=== PATIENT | female | born 1975 | race Two or more races ===

== ENCOUNTER 2019-12-25 05:10 | Day surgery (SDC) | payer OTHER ==
[2019-12-24 13:20] VITALS: BMI 23.2
[2019-12-25] MEDS ORDERED: PROPOFOL 20 ML ONE ×3 (07:29→08:21)
[2019-12-25] MEDS ORDERED: ROCURONIUM BROMIDE 100 MG/10 ML VIAL ONE (07:29)
[2019-12-25] MEDS ORDERED: EPHEDRINE SULFATE/0.9% NACL/PF 50 MG/10 ML SYRINGE NR ONE (07:29)
--- NOTE | 2019-12-25 07:32 | HP ---
History & Physical Update - History History: No Change - Physical Physical: No Change - Assessment Assessment: No Change - Plan Plan: No Change (Consent signed and witnessed All questions answered)
[2019-12-25] MEDS ORDERED: ONDANSETRON 4 MG/2 ML VIAL IVPUSH PRN (07:33)
[2019-12-25] MEDS ORDERED: IBUPROFEN 800 MG/8 ML IJ IVPB PRN (07:33)
[2019-12-25] MEDS ORDERED: oxyCODONE HCL 5 MG TABLET PO PRN (07:33)
[2019-12-25] MEDS ORDERED: MIDAZOLAM HCL 2 MG/2 ML SINGLE DOSE VIAL ONE (07:33)
[2019-12-25] MEDS ORDERED: IBUPROFEN 600 MG TABLET (FP) PO PRN (07:33)
--- NOTE | 2019-12-25 07:33 | OP ---
Operative Note - Note: Operative Date: 12/25/19 Pre-Operative Diagnosis: 44yo P2 with submucosal fibroid, menorrhagia, anemia Operation: Hysteroscopy, Myomectomy, Polypectomy, D&C Findings: Polyps x 2 Fibroid 3cm Uterus 10wk, irregular with fibroids Post-Operative Diagnosis: Same as Pre-op Surgeon: Maryam Ward Anesthesiologist/LABOR [employer]OMICS TEACHER: Jennifer Martinez Anesthesia: MAC Specimens Removed: Fibroid, polyp shavings, Endometrial curettings Estimated Blood Loss (mls): 5 Instrument used (Debridements only): Symphion Hysteroscope Drains & Tubes with Location: FD 50cc Drains, Volume Out (mls): 50 Fluid Volume Replaced (mls): 700 Operative Report Dictated: Yes
[2019-12-25] MEDS ORDERED: ELECTROLYTE-148 SOLN 1,000 ML IV SCH (07:45)
[2019-12-25] MEDS ORDERED: SUCCINYLCHOLINE CHLORIDE 200 MG/10 ML SYRINGE ONE (08:21)
[2019-12-25] MEDS ORDERED: LIDOCAINE HCL 2% JELLY (5 ML/TUBE) ONE (08:23)
[2019-12-25] MEDS ORDERED: DEXAMETHASONE SOD PHOSPHATE 4 MG/1 ML VIAL ONE (08:23)
[2019-12-25] MEDS ORDERED: KETOROLAC TROMETHAMINE 30 MG/1 ML VIAL ONE (08:23)
[2019-12-25] MEDS ORDERED: LIDOCAINE HCL/PF 2% SDV 5ML VIAL ONE ×2 (08:23)
--- NOTE | 2019-12-25 08:56 | OP ---
DATE OF OPERATION: 12/25/2019 PREOPERATIVE DIAGNOSIS: A 44-year-old para 2 with submucosal fibroids, menorrhagia, anemia. OPERATION: Hysteroscopy, myomectomy, polypectomy, dilation and curettage. FINDINGS: Two polyps; one approximately 3 cm in size fibroid; a uterus 10-week in size irregular with fibroids. POSTOPERATIVE DIAGNOSIS: Two polyps; one approximately 3 cm in size fibroid; a uterus 10-week in size irregular with fibroids. SURGEON: Maryam Ward MD ANESTHESIOLOGIST: Jennifer Martinez MD ANESTHESIA: MAC. SPECIMENS REMOVED: Fibroid, polyp, shavings and endometrial curettings. DESCRIPTION OF OPERATIVE PROCEDURE: After assuring informed consent, patient was brought to the operating room where she was placed in dorsal lithotomy position. Perineum and vagina were prepped and draped in a sterile fashion. Cervix was articulated with a single-tooth tenaculum using Wynne retractors for visualization. The cervix was gradually dilated to accommodate 6.3-mm Symphion hysteroscope which was introduced into the uterus without any difficulty after it was assembled, primed and white balanced. The above findings were noted. The resectoscope device was introduced through the operative port and cavity was cleared of polyps and fibroids. Subsequently, all instruments were removed from the uterus. The sharp curette was used for sharp curettage to obtain endometrial curettings. Subsequently, all instruments were removed from cervix, vagina and uterus. Excellent hemostasis was noted. Estimated blood loss was 5 mL. Urine output was 50 mL. Patient received 700 mL of IV fluids. Fluid deficit was 50 mL. Patient tolerated the procedure well and was brought to the recovery room in stable condition extubated. All instrument and sponge count was correct x2. Yusra [id number]
[2019-12-25 09:37] VITALS: TEMP 97.3
[2019-12-25 10:56] VITALS: BP 125/70; PULSE 78
--- NOTE | 2019-12-27 10:07 | PATH ---
Surgical Pathology Report Patient Name: DEIDRA GRULLON Med. Rec. #: [id number] /Age/Gender: 1975 (Age: 44) / F Account: [id number] Location: [facility] SURGICAL Taken: 12/25/2019 Received: 12/25/2019 Reported: 12/27/2019 Physicians: Maryam Ward M.D. Specimen(s) Received A: ENDOMETRIAL CURETTINGS B: POLYPS/FIBROIDS Clinical History Leiomyoma of uterus Final Diagnosis A. ENDOMETRIAL CURETTINGS, DILATION AND CURETTAGE: FRAGMENTS OF SECRETORY ENDOMETRIUM, FIBROMUSCULAR TISSUE, AND SCANT BENIGN ENDOCERVICAL TISSUE. B. POLYPS/FIBROIDS, HYSTEROSCOPIC FIBROID RESECTION, SYMPHION: FRAGMENTS OF ENDOMETRIAL POLYP, SECRETORY ENDOMETRIUM, AND FIBROMUSCULAR TISSUE SUGGESTIVE OF SUBMUCOSAL LEIOMYOMA. Electronically Signed Flaquita Hernandez M.D. Gross Description A. Received in formalin labeled "endometrial curettings" are multiple irregular fragments of pink-gonzalez and hemorrhagic, mucoid soft tissue measuring 1.5 x 1 x 0.5 cm. Entire specimen is submitted in one cassette. B. Received in formalin labeled "polyps/fibroids" are multiple irregular fragments of pink-gonzalez rubbery soft tissue consistent with morcellated fibroids measuring 5 x 3 x 0.8 cm in aggregate. The entire specimen submitted in 3 cassettes. MLSZ/12/25/2019 sanml/12/25/2019
== END 2019-12-25 10:25 | disposition home or self-care (01) ==
LOC: JASU-SURG 05:10
PROVIDERS: ATTEND Obstetrics & Gynecology
PROC: 0UJD8ZZ Inspection of Uterus and Cervix, Via Natural or Artificial Opening Endoscopic (ICD-10-PCS; 2019-12-25)
PROC: 0UB98ZZ Excision of Uterus, Via Natural or Artificial Opening Endoscopic (ICD-10-PCS; principal; 2019-12-25 13:00)
PROC: 0UDB7ZX Extraction of Endometrium, Via Natural or Artificial Opening, Diagnostic (ICD-10-PCS; 2019-12-25 13:00)
DX: D25.0 Submucous leiomyoma of uterus (principal); N92.0 Excessive and frequent menstruation with regular cycle; D64.9 Anemia, unspecified
CPT/HCPCS: 71046-TC-FY; 84703; 88305-TC; 94760

== ENCOUNTER 2022-03-02 08:00 | Inpatient (IN) | payer OTHER ==
[2022-03-08 11:15] VITALS: BMI 21.9
[2022-03-09] MEDS ORDERED: FENTANYL CITRATE/PF 50 MCG/ML VIAL ONE ×4 (13:47→18:43)
[2022-03-09] MEDS ORDERED: MIDAZOLAM HCL 2 MG/2 ML SINGLE DOSE VIAL ONE (13:47)
[2022-03-09] MEDS ORDERED: PROPOFOL 20 ML ONE (13:48)
[2022-03-09] MEDS ORDERED: DEXAMETHASONE SOD PHOSPHATE 4 MG/1 ML VIAL ONE (13:48)
[2022-03-09] MEDS ORDERED: ONDANSETRON 4 MG/2 ML VIAL ONE (13:48)
[2022-03-09] MEDS ORDERED: LIDOCAINE HCL/PF 2% SDV 5ML VIAL ONE (13:48)
[2022-03-09] MEDS ORDERED: ROCURONIUM BROMIDE 50 MG/5 ML SYRINGE ONE (13:48)
[2022-03-09] MEDS ORDERED: NEOSTIGMINE METHYLSULFATE 0.5 MG/ML - 10 ML MDV ONE ×2 (14:39→18:13)
[2022-03-09] MEDS ORDERED: GLYCOPYRROLATE 0.2 MG/1 ML VIAL ONE (14:39)
[2022-03-09] MEDS ORDERED: KETOROLAC TROMETHAMINE 30 MG/1 ML VIAL ONE (14:40)
[2022-03-09] MEDS ORDERED: BUPIVACAINE LIPOSOME/PF (EXPAREL) 266 MG/20 ML VIAL ONE (14:44)
[2022-03-09] MEDS ORDERED: BUPIVACAINE HCL/PF 0.25% (2.5MG/ML) 10 ML VIAL ONE (14:44)
[2022-03-09] MEDS ORDERED: SCOPOLAMINE HYDROBROMIDE 1 PATCH PATCH.TD72 ONE (15:36)
[2022-03-09] MEDS ORDERED: ceFAZolin SODIUM 1 GM VIAL ONE (16:47)
[2022-03-09] MEDS ORDERED: ceFAZolin SODIUM 1 GM VIAL IVPB ONE (16:52)
[2022-03-09] MEDS ORDERED: ONDANSETRON 4 MG/2 ML VIAL IVPUSH PRN ×2 (17:03→18:50)
[2022-03-09] MEDS ORDERED: PROMETHAZINE HCL 25 MG/1 ML VIAL IVPUSH PRN (17:03)
[2022-03-09] MEDS ORDERED: LACTATED RINGERS SOLUTION 1,000 ML IV SCH (17:15)
[2022-03-09] MEDS ORDERED: HYDROmorphone *PCA* 10MG/50ML DISP.SYRIN PCA SCH (17:15)
[2022-03-09] MEDS: FENTANYL CITRATE/PF 50 MCG/ML VIAL IVPUSH PRN ×5 (18:38→18:55)
[2022-03-09] MEDS ORDERED: HYDROmorphone *PCA* 10MG/50ML DISP.SYRIN ONE (18:42)
[2022-03-09] MEDS ORDERED: oxyCODONE HCL 5 MG TABLET PO PRN (18:50)
[2022-03-09] MEDS ORDERED: IBUPROFEN 800 MG/8 ML IJ IVPB PRN (18:50)
[2022-03-09] MEDS ORDERED: IBUPROFEN 600 MG TABLET (FP) PO PRN (18:50)
[2022-03-09] MEDS ORDERED: ACETAMINOPHEN INJECTION 100 ML IVPB ONE (19:15)
[2022-03-09] MEDS ORDERED: KETOROLAC TROMETHAMINE 30 MG/1 ML VIAL IVPUSH ONE (19:15)
[2022-03-09] MEDS ORDERED: ACETAMINOPHEN 1000 MG/100 ML BAG IVPB ONE (19:16)
[2022-03-09] MEDS: ELECTROLYTE-148 SOLN 1,000 ML IV SCH (20:48)
[2022-03-10] MEDS: ELECTROLYTE-148 SOLN 1,000 ML IV SCH (03:07)
[2022-03-10] MEDS ORDERED: ENOXAPARIN NA (PORCINE) 40 MG/0.4 ML DISP.SYRIN SQ ONE (10:00)
[2022-03-10 10:14] LABS: BASO % 0.1 % (0-2.0); HEMATOCRIT 30.1 % (32.4-45.2); HEMOGLOBIN 9.6 GM/dL (10.7-15.3); LYMPH % 12.7 % (8-40); MCH 27.2 pg (25.7-33.7); MEAN CELL VOLUME 84.8 fl (80-96); MEAN PLT VOLUME 10.3 fl (7.5-11.1); MONO % 7.2 % (3.8-10.2); PLATELET COUNT 193 10^3/uL (134-434); RBC 3.55 M/mm3 (3.60-5.2); RDW 14.1 % (11.6-15.6); WHITE BLOOD COUNT 11.8 K/mm3 (4.0-10.0)
[2022-03-10 14:57] VITALS: BP 131/70; PULSE 89; RESP 20; TEMP 99.1
== END 2022-03-10 20:00 | disposition home or self-care (01) | DRG 743 ==
LOC: J2C 03-09 04:28 → J7W 03-09 21:02
PROVIDERS: ADMIT Obstetrics & Gynecology; ATTEND Obstetrics & Gynecology
PROC: 0UT70ZZ Resection of Bilateral Fallopian Tubes, Open Approach (ICD-10-PCS; 2022-03-09)
PROC: 0UT90ZL Resection of Uterus, Supracervical, Open Approach (ICD-10-PCS; principal; 2022-03-09 14:00)
DX: D25.9 Leiomyoma of uterus, unspecified (principal); N92.0 Excessive and frequent menstruation with regular cycle
CPT/HCPCS: 36415; 81025; 85025; 86850; 86900; 86901; 88302-TC; 88307-TC; 94010; 94760